=== PATIENT | male | born 1995 | race Two or more races ===

== ENCOUNTER 2021-06-29 15:59 | Emergency (ER) | payer MEDICARE ==
[2021-06-29 21:32] LABS: INFLUENZA A NAA NEGATIVE (NEGATIVE)
[2021-06-29 21:40] LABS: CORONAVIRUS 2019 SARS-COV-2 POSITIVE (NEGATIVE)
== END 2021-06-29 22:50 | disposition home or self-care (01) ==
LOC: FER 15:59
PROVIDERS: Emergency Medicine
DX: U07.1 COVID-19 (principal)
CPT/HCPCS: 99283; U0002

== ENCOUNTER 2021-08-30 17:08 | Emergency (ER) | payer OTHER ==
[2021-08-30 19:45] LABS: BILIRUBIN NEGATIVE (NEGATIVE); BLOOD NEGATIVE Ery/uL (NEGATIVE); CLARITY CLEAR (CLEAR); COLOR YELLOW (YELLOW); GLUCOSE (U) NORMAL (NORMAL); LEUKOCYTES NEGATIVE Leu/uL (NEGATIVE); NITRITE NEGATIVE (NEGATIVE); PROTEIN NEGATIVE (NEGATIVE); SPECIFIC GRAVITY 1.025 (1.001-1.030); UROBILINOGEN 0.2 mg/dL (0.2-1.0)
[2021-08-30] MEDS ORDERED: CYCLOBENZAPRINE10 MG PO (19:50)
[2021-08-30] MEDS ORDERED: NAPROXEN500 MG PO (19:50)
[2021-08-30] MEDS ORDERED: HYDROCODON-ACE1 EAC2 PO (19:50)
== END 2021-08-30 20:08 | disposition home or self-care (01) ==
LOC: FER 17:08
PROVIDERS: Internal Medicine
DX: S30.1XXA Contusion of abdominal wall, initial encounter (principal); M54.2 Cervicalgia; M25.512 Pain in left shoulder; V48.5XXA Car driver injured in noncollision transport accident in traffic accident, initial encounter; Y92.410 Unspecified street and highway as the place of occurrence of the external cause
CPT/HCPCS: 70450; 72125; 81003